=== PATIENT | female | born 1960 | race Caucasian/White ===

== ENCOUNTER 2018-10-16 15:10 | Emergency (ER) | payer BC ==
--- NOTE | 2018-10-16 15:42 | Emergency Department Record ---
History of Present Illness - General Chief complaint: Head Injury Stated complaint: HEAD INJURY Time Seen by Provider: 10/16/18 15:23 Source: Patient Mode of Arrival: Ambulatory Limitations: No limitations - History of Present Illness Initial comments: The patient is here after being sent over from the due to slipping and falling on the ice 2 days ago and hitting the back of her head on the cement. She thinks she had a LOC and has had a persistent TALAVERA since with nausea. The patient did vomit once 2 days ago. The patient also has had some unsteadiness when walking but denies any confusion. There has been mild neck pain also. The patient is not on any blood thinners. MD Complaint: Head injury Onset/Timin -: Days(s) Mechanism of Injury: Other Loss of Consciousness: Yes, Unsure Place: Work, Outdoors Radiation: Neck Severity scale (1-10): 4 Quality: Aching Consistency: Constant Provoking factors: None known Associated Symptoms: Neck pain - Related Data Allergies/Adverse reactions: Allergies Allergy/AdvReac Type Severity Reaction Status Date / Time Penicillins AdvReac PT UNSURE Unverified 10/16/18 14:28 OF REACTION Travel Screening - Travel/Exposure Within Last 30 Days Have you traveled within the last 30 days?: No Review of Systems Constitutional: Denies: Chills, Fever, Other Eyes: Denies: Eye discharge ENT: Denies: Congestion Respiratory: Denies: Cough Past Medical History - SOCIAL HISTORY Smoking Status: Former smoker - RESPIRATORY Hx Respiratory Disorders: No - CARDIOVASCULAR Hx Cardio Disorders: No - NEURO Hx Neuro Disorders: No - GI Hx GI Disorders: No Comment:: "normal" colonoscopy 1 year prior - Hx Genitourinary Disorders: No - ENDOCRINE Hx Endocrine Disorders: No - MUSCULOSKELETAL Hx Musculoskeletal Disorders: Yes Hx Arthritis: Yes Hx Fibromyalgia: Yes - PSYCH Hx Psych Problems: Yes Hx Depression: Yes (not currently- takes antidepressant for fibromyalgia) - HEMATOLOGY/ONCOLOGY Hx Hematology/Oncology Disorders: No Family Medical History Any Significant Family History?: No Physical Exam - General General Appearance: Alert, Oriented x3, Cooperative, No acute distress - Head Head exam: Normocephalic. negative: Atraumatic (There is tenderness over the occiput.) - Eye Eye exam: Normal appearance, PERRL, EOMI - ENT ENT exam: Normal exam, Normal external ear exam, TM's normal bilaterally - Neck Neck exam: Normal inspection, Full ROM, Tenderness (There is midline tenderness to palpation.) - Respiratory Respiratory exam: Normal lung sounds bilaterally. negative: Respiratory distress - Cardiovascular Cardiovascular Exam: Regular rate, Normal rhythm, Normal heart sounds - GI/Abdominal GI/Abdominal exam: Soft, Normal bowel sounds. negative: Tenderness - Extremities Extremities exam: Normal inspection, Full ROM, Normal capillary refill. negative: Tenderness - Neurological Neurological exam: Alert, Normal gait, Oriented X3, Other (Neg Drift and Rhomberg exams.). negative: Abnormal gait, Altered, Motor sensory deficit - Skin Skin exam: negative: Rash Course Vital Signs 10/16/18 15:14 Temperature 98.1 F Pulse Rate 71 Respiratory 18 Rate Blood Pressure 145/99 Pulse Ox 96 - Reevaluation(s) Reevaluation #1: The patient is doing very well at this time. I did discuss the neg xrays with the patient and the need for F/U if not better. 10/16/18 16:47 Medical Decision Making - Data Complexity MDM Data: X-Ray Ordered and/or Reviewed - Radiology Data Radiology results: Report reviewed (Head and Neck CT: Neg for acute changes.) Disposition Disposition: Discharge Clinical Impression: Head injury with loss of consciousness Disposition: Home, Self-Care Condition: (2) Stable Instructions: Concussion (ED) Additional Instructions: Please take Tylenol or Motrin for pain and rest when possible. Please see your family doctor next week if needed and return to the ER for any worsening symptoms, worsening Headache, vomiting, or confusion. Forms: Patient Portal Access Time of Disposition: 16:49 Quality - Quality Measures Quality Measures: N/A - Blood Pressure Screening View Details: Yes Does Patient Have Any of the Following: No Blood Pressure Classification: Hypertensive Reading Systolic Measurement: 145 Diastolic Measurement: 99 Screening for High Blood Pressure: < First Hypertensive BP, F/U Documented > [ [id number]] First Hypertensive Follow-up Interventions: Referral to alternative/primary care provider.
[2018-10-16] MEDS ORDERED: ACETAMINOPHEN 325 MG TAB PO ONE (16:13)
--- NOTE | 2018-10-19 09:23 | CT SCAN REPORT ---
EXAM: CT OF THE BRAIN WITHOUT CONTRAST HISTORY: STATUS POST FALL. TECHNIQUE: Sequential axial images were obtained from the foramen magnum to the vertex without contrast administration. FINDINGS: The brain volume is normal. No large territorial infarct, hemorrhage , mass effect, or midline shift. No extraaxial fluid collection. The orbits, paranasal sinuses, and mastoid air cells are normal. IMPRESSION: NO ACUTE INTRACRANIAL ABNORMALITY IS APPRECIATED. JOB NUMBER: [id number] MTDD
--- NOTE | 2018-10-19 09:44 | CT SCAN REPORT ---
EXAM: CT OF THE CERVICAL SPINE WITHOUT CONTRAST HISTORY: NECK PAIN. TECHNIQUE: Sequential axial images were obtained through the cervical spine without intravenous contrast administration. Sagittal and coronal reformatted images were performed. FINDINGS: No evidence of fracture, subluxation or perched facet. No significant degenerative change. The visualized lung apices are normal. IMPRESSION: NEGATIVE CT EXAMINATION OF THE CERVICAL SPINE. JOB NUMBER: [id number] MTDD
== END 2018-10-16 16:58 | disposition home or self-care (01) ==
LOC: ER 15:10
DX: S06.0X1A Concussion with loss of consciousness of 30 minutes or less, initial encounter (principal); R11.2 Nausea with vomiting, unspecified; R05 Cough; M54.2 Cervicalgia; W00.0XXA Fall on same level due to ice and snow, initial encounter; Y99.0 Civilian activity done for income or pay; Z87.891 Personal history of nicotine dependence
CPT/HCPCS: 70450; 72125; 99283; 99284